=== PATIENT | male | born 1980 | race Hispanic/Latino ===

== ENCOUNTER 2020-07-08 16:07 | Emergency (ER) | payer BC ==
[2020-07-08] MEDS ORDERED: ACETAMINOPHEN 500 MG TAB ONE (16:44)
--- NOTE | 2020-07-08 17:30 | RAD REPORT ---
EXAM DESCRIPTION: RAD - Chest Single View - 07/08/2020 5:25 pm CLINICAL HISTORY: Cough;Fever Chest pain. COMPARISON: No comparisons FINDINGS: Portable technique limits examination quality. Moderate bilateral pulmonary opacities are present likely related to viral infection or pneumonia. Th e heart is normal in size. No displaced fractures.
[2020-07-08 19:40] LABS: SARS-COV-2 RT PCR POSITIVE (NEGATIVE)
--- NOTE | 2020-07-08 19:48 | ER ---
Nurse's Notes [facility] Name: Gurdeep Null Age: 39 yrs Sex: Male : 1980 Arrival Date: 07/08/2020 Time: 16:08 Bed 26 Private MD: Diagnosis: Coronavirus infection, unspecified Presentation: 07/08 16:17 Chief complaint: Patient states: fever, off and on, x days. No appetite, diarrhea, ca1 cough and congestion. Took Tylenol at 1200. Coronavirus screen: Client denies travel out of the [place] in the last 14 days. At this time, the client does not indicate any symptoms associated with coronavirus-19. Ebola Screen: Patient negative for fever greater than or equal to 101.5 degrees Fahrenheit, and additional compatible Ebola Virus Disease symptoms Patient denies exposure to infectious person. Patient denies travel to an Ebola-affected area in the 21 days before illness onset. No symptoms or risks identified at this time. Initial Sepsis Screen: Does the patient meet any 2 criteria? No. Patient's initial sepsis screen is negative. Does the patient have a suspected source of infection? No. Patient's initial sepsis screen is negative. Risk Assessment: Do you want to hurt yourself or someone else? Patient reports no desire to harm self or others. Onset of symptoms was July 08, 2020. 16:17 Method Of Arrival: Ambulatory ca1 16:17 Acuity: [id number] 3 ca1 Historical: - Allergies: 16:19 No Known Allergies; ca1 - Home Meds: 16:19 None [Active]; ca1 - PMHx: 16:19 None; ca1 - PSHx: 16:19 None; ca1 - Immunization history:: Flu vaccine is not up to date. - Social history:: Smoking status: Patient reports use of chewing tobacco. Screenin:35 Abuse screen: Denies threats or abuse. Denies injuries from another. Nutritional iw screening: No deficits noted. Tuberculosis screening: No symptoms or risk factors identified. Fall Risk None identified. Assessment: 16:34 General: Appears in no apparent distress. Behavior is calm, cooperative. General: iw Reports fever for feeling ill for. Pain: Complains of pain in body aches all over. Neuro: Level of Consciousness is awake, alert, obeys commands, Oriented to person, place, time, situation, Moves all extremities. Cardiovascular: Capillary refill < 3 seconds in bilateral fingers Patient's skin is warm and dry. Respiratory: Respiratory effort is even, unlabored. Derm: Skin is intact, is healthy with good turgor. Musculoskeletal: Range of motion: intact in all extremities. 17:27 Reassessment: Patient appears in no apparent distress at this time. Patient and/or iw family updated on plan of care and expected duration. Pain level reassessed. Patient is alert, oriented x 3, equal unlabored respirations, skin warm/dry/pink. 20:00 Reassessment: Patient and/or family updated on plan of care and expected duration. Pain fu level reassessed. Patient is alert, oriented x 3, equal unlabored respirations, skin warm/dry/pink. Vital Signs: 16:17 BP 141 / 87; Pulse 118; Resp 16 S; Temp 101.5(O); Pulse Ox 97% on R/A; Weight 108.86 kg ca1 (R); Height 5 ft. 11 in. (180.34 cm) (R); Pain 4/10; 17:27 BP 133 / 78; Pulse 102; Resp 18 S; Temp 100.6(O); Pulse Ox 98% on R/A; iw 16:17 Body Mass Index 33.47 (108.86 kg, 180.34 cm) ca1 ED Course: 16:08 Patient arrived in ED. as 16:19 Triage completed. ca1 16:19 Arm band placed on right wrist. ca1 16:20 [facility] Tolliver [facility]C [facility]. kb 16:20 Dominick Arango MD is Attending Physician. kb 16:34 Jeannie Lorenz, DINO is Primary Nurse. iw 16:38 Flu Sent. ca1 16:38 COVID-19 : Document "Date of Symptom Onset" if Symptomatic. Sent. ca1 17:25 Chest Single View XRAY In Process Unspecified. EDMS 19:30 Patient has correct armband on for positive identification. Bed in low position. Call fu light in reach. Side rails up X 1. comb machine operator on. Pulse ox on. 20:20 No provider procedures requiring assistance completed. fu 20:20 Patient did not have IV access during this emergency room visit. fu Administered Medications: 16:27 Drug: Tylenol 1000 mg Route: PO; ca1 19:00 Follow up: Response: No adverse reaction fu 20:19 Drug: Ibuprofen 800 mg Route: PO; ca1 21:09 Follow up: Response: No adverse reaction fu Outcome: 19:48 Discharge ordered by . danie 20:20 Discharged to home ambulatory. fu 20:20 Condition: stable 20:20 Discharge instructions given to patient, Instructed on discharge instructions, follow up and referral plans. Demonstrated understanding of instructions, follow-up care. 20:28 Patient left the ED. fu Signatures: Dispatcher [employer] EDAnne Adams, AUTOMATIC SPLICING MACHINE OPERATOR-C AUTOMATIC SPLICING MACHINE OPERATOR-Maral Venegas Irene, RN DINO Patel Munguia RN RN fu Sheeba Zelaya RN RN ca1
--- NOTE | 2020-07-08 19:48 | EDPHYS ---
Physician Documentation [facility] Name: Gurdeep Null Age: 39 yrs Sex: Male : 1980 Arrival Date: 07/08/2020 Time: 16:08 Bed 26 Private MD: ED Physician Dominick Arango HPI: 07/08 18:52 This 39 yrs old Male presents to ER via Ambulatory with complaints of fatigue, kb Decreased Appetite. 18:52 The patient or guardian reports cough, described as mild, with no sputum, dry, flu kb symptoms, no appetite, fever (max 103), fatigue. Onset: The symptoms/episode began/occurred 6 day(s) ago. Severity of symptoms: At their worst the symptoms were moderate, in the emergency department the symptoms are unchanged. Modifying factors: The symptoms are alleviated by nothing, the symptoms are aggravated by nothing. Associated signs and symptoms: Pertinent positives: fever. The patient has not experienced similar symptoms in the past. The patient has not recently seen a physician. Pt reports fatigue for 6 days. States he has been working a lot and thinks he is just run down. Reports slight dry cough, no appetite, and fever. States temp was 103 a few days ago. Historical: - Allergies: 16:19 No Known Allergies; ca1 - Home Meds: 16:19 None [Active]; ca1 - PMHx: 16:19 None; ca1 - PSHx: 16:19 None; ca1 - Immunization history:: Flu vaccine is not up to date. - Social history:: Smoking status: Patient reports use of chewing tobacco. ROS: 18:48 Cardiovascular: Negative for chest pain, palpitations, and edema, Abdomen/GI: Negative kb for abdominal pain, nausea, vomiting, diarrhea, and constipation, MS/Extremity: Negative for injury and deformity, Skin: Negative for injury, rash, and discoloration, Neuro: Negative for headache, weakness, numbness, tingling, and seizure. 18:48 Constitutional: Positive for fatigue, fever, decreased appetite. 18:48 Respiratory: Positive for cough, with no reported sputum, Negative for dyspnea on exertion, hemoptysis, orthopnea, pleurisy, shortness of breath, sputum production, wheezing. Exam: 18:50 Constitutional: This is a well developed, well nourished patient who is awake, alert, kb and in no acute distress. Head/Face: Normocephalic, atraumatic. Respiratory: Respirations even and unlabored. No increased work of breathing, no retractions or nasal flaring. Abdomen/GI: Soft, non-tender. No distention Skin: Warm, dry with normal turgor. Normal color. MS/ Extremity: Pulses equal, no cyanosis. Neurovascular intact. Full, normal range of motion. Neuro: Awake and alert, GCS 15, oriented to person, place, time, and situation. Moves all extremities. Normal gait. Vital Signs: 16:17 BP 141 / 87; Pulse 118; Resp 16 S; Temp 101.5(O); Pulse Ox 97% on R/A; Weight 108.86 kg ca1 (R); Height 5 ft. 11 in. (180.34 cm) (R); Pain 4/10; 17:27 BP 133 / 78; Pulse 102; Resp 18 S; Temp 100.6(O); Pulse Ox 98% on R/A; iw 16:17 Body Mass Index 33.47 (108.86 kg, 180.34 cm) ca1 MDM: 16:35 Patient medically screened. kb 18:48 Data reviewed: vital signs, nurses notes. Data interpreted: Pulse oximetry: on room air kb is 98 %. Interpretation: normal. 19:47 Counseling: I had a detailed discussion with the patient and/or guardian regarding: the kb historical points, exam findings, and any diagnostic results supporting the discharge/admit diagnosis, lab results, radiology results, the need for outpatient follow up, a family practitioner, to return to the emergency department if symptoms worsen or persist or if there are any questions or concerns that arise at home. 07/08 16:21 Order name: Flu kb 07/08 16:21 Order name: COVID-19 : Document "Date of Symptom Onset" if Symptomatic. kb 07/08 16:51 Order name: Chest Single View XRAY; Complete Time: 18:05 kb 07/08 19:40 Order name: COVID-19/FLU A+B; Complete Time: 19:47 EDMS Administered Medications: 16:27 Drug: Tylenol 1000 mg Route: PO; ca1 19:00 Follow up: Response: No adverse reaction fu 20:19 Drug: Ibuprofen 800 mg Route: PO; ca1 21:09 Follow up: Response: No adverse reaction fu Disposition: 03/21 01:20 Co-signature as Attending Physician, Dominick Arango MD I agree with the assessment and [facility] plan of care. Disposition: 07/08/20 19:48 Discharged to Home. Impression: Coronavirus infection, unspecified. - Condition is Stable. - Discharge Instructions: Viral Respiratory Infection, [id number], COVID-19. - Medication Reconciliation Form, Thank You Letter, Antibiotic Education, Prescription Opioid Use form. - Follow up: Emergency Department; When: As needed; Reason: Worsening of condition. Follow up: Private Physician; When: 2 - 3 days; Reason: Recheck today's complaints, Continuance of care, Re-evaluation by your physician. Signatures: Dispatcher [employer] EDAnne Adams, TAISHA-Jad SUMNER-Dominick Gonzales MD MD cha Umadhay, Patel, RN RN noah Zelaya, Sheeba RN DINO ca1 Corrections: (The following items were deleted from the chart) 07/08 18:31 16:21 Influenza Screen (A ordered. EDIN EDMS 18:31 16:21 CORONAVIRUS ordered. EDIN EDMS 18:31 16:22 Influenza Screen (A \\T\\ B)+BA.LAB.BRZ ordered. EDIN EDMS 18:31 16:22 CORONAVIRUS+MR.LAB.BRZ ordered. [facility] EDMS 18:55 18:52 Pt reports fatigue for 6 days. States he has been working a lot and thinks he is kb just run down. Reports slight dry cough and fever. States temp was 103 a few days ago. kb 20:28 19:48 07/08/2020 19:48 Discharged to Home. Impression: Coronavirus infection, fu unspecified. Condition is Stable. Forms are Medication Reconciliation Form, Thank You Letter, Antibiotic Education, Prescription Opioid Use. Follow up: Emergency Department; When: As needed; Reason: Worsening of condition. Follow up: Private Physician; When: 2 - 3 days; Reason: Recheck today's complaints, Continuance of care, Re-evaluation by your physician. kb
[2020-07-08] MEDS ORDERED: IBUPROFEN 400 MG TAB ONE (20:33)
[2020-07-08 20:35] VITALS: BP 133/78; TEMP 100.6; O2SAT 98
== END 2020-07-08 20:28 | disposition home or self-care (01) ==
LOC: ER 16:07
DX: U07.1 COVID-19 (principal); F17.220 Nicotine dependence, chewing tobacco, uncomplicated
CPT/HCPCS: 0240U; 71045; 99284

== ENCOUNTER 2020-07-12 12:52 | Inpatient (IN) | payer BC ==
[2020-07-12 15:59] LABS: Absolute Lymphocytes (CBC) 1.5 K/uL (0.7-4.9); Basophils % 0.6 % (0-1.3); Hematocrit 42.8 % (39.6-49.0); RBC Red Blood Cell Count 5.06 M/uL (4.33-5.43)
[2020-07-12 16:01] LABS: Protime INR 1.16
--- NOTE | 2020-07-12 16:07 | RAD REPORT ---
EXAM DESCRIPTION: RAD - Chest Single View - 07/12/2020 3:18 pm CLINICAL HISTORY: DYSPNEA, COVID positive COMPARISON: Portable July 08 TECHNIQUE: AP portable chest image was obtained 07/12/2020 3:18 pm . FINDINGS: Bilateral airspace opacification present in the mid and lower lung castaneda. Each apex is ge nerally spared. This moderate severity bilateral pneumonia pattern is not substantially different fro m comparison. Heart and vasculature are normal. No measurable pleural effusion and no pneumothorax. N o acute bony abnormality seen. No acute aortic findings suspected. IMPRESSION: Moderate severity bilateral COVID-19 pneumonia pattern. Findings are not substantially different from July 08.
[2020-07-12 16:34] LABS: ALT/SGPT 112 U/L (12-78); AST/SGOT 79 U/L (15-37); Albumin 2.9 g/dL (3.4-5.0); Alkaline Phosphatase 101 U/L (45-117); BUN Blood Urea Nitrogen 6 mg/dL (7-18); Bicarbonate 27 mmol/L (21-32); Bilirubin Direct 0.2 mg/dL (0-0.2); Bilirubin Total 0.6 mg/dL (0.2-1.0); Ferritin 944.8 ng/mL (26-388); Glucose Level 104 mg/dL (74-106); Lipase 162 U/L (73-393); Potassium 4.1 mmol/L (3.5-5.1); Protein, Total 8.3 g/dL (6.4-8.2); Sodium Level 133 mmol/L (136-145); Troponin (Emerg Dept Use Only) < 0.02 ng/mL (0.0-0.045)
--- NOTE | 2020-07-12 17:01 | RAD REPORT ---
EXAM DESCRIPTION: CT - Chest For Pe Angio - 07/12/2020 4:47 pm CLINICAL HISTORY: DYSPNEA, COVID positive COMPARISON: Chest Single View dated 07/12/2020 TECHNIQUE: Dynamically enhanced 2 mm thick images of the chest were obtained during administration o f approximately 150mL Isovue 370 IV contrast. Coronal and oblique MIP reconstruction images were gene rated and reviewed. Exam utilizes a protocol to evaluate the pulmonary arterial tree. All CT scans are performed using dose optimization technique as appropriate and may include automated exposure control or mA/KV adjustment according to patient size. FINDINGS: No pulmonary emboli are identified. The aorta as imaged shows no acute or suspicious finding. No pericardial thickening or effusion. Prominent, predominantly peripheral, ground-glass and airspace opacities are present. A few air bronc hograms are present. No cavitation or mass lesion. Pattern is well described in COVID-19 pneumonia is the single most likely etiology given the provided history. No pleural effusion or pleural thickenin g. No mediastinal or hilar suspicious masses. No chest wall masses or abnormal axillary lymphadenopathy. Limited imaging of the uppermost abdomen shows diffuse fatty infiltration of the liver. IMPRESSION: No pulmonary emboli identified. Moderate severity bilateral COVID-19 pneumonia.
--- NOTE | 2020-07-12 17:11 | EDPHYS ---
Physician Documentation [facility] Name: Gurdeep Null Age: 39 yrs Sex: Male : 1980 Arrival Date: 07/12/2020 Time: 12:55 Bed 27 Private MD: ED Physician Donnie Miller HPI: 07/12 15:38 This 39 yrs old Male presents to ER via Ambulatory with complaints of trouble kb sleeping- covid+. 15:42 The patient has shortness of breath at rest. kb 16:01 Onset: The symptoms/episode began/occurred 4 day(s) ago. Duration: The symptoms are kb intermittent. The patient's shortness of breath is aggravated by exertion, light activity. Associated signs and symptoms: Pertinent positives: non-productive cough. Severity of symptoms: At their worst the symptoms were moderate in the emergency department the symptoms are unchanged. The patient has not experienced similar symptoms in the past. The patient has not recently seen a physician. Pt reports shortness of breath at night that keeps him from sleeping. Reports he is able to go to sleep, but then wakes up moments later gasping for a breath. States this started 4 days ago when he was diagnosed with COVID. Has been monitoring his oxygen at home and it has been running 87-91%. Historical: - Allergies: 13:29 No Known Allergies; ca1 - Home Meds: 13:29 None [Active]; ca1 - PMHx: 13:29 None; ca1 - PSHx: 13:29 None; ca1 - Immunization history:: Flu vaccine is not up to date. - Social history:: Smoking status: Patient/guardian denies using tobacco, the patient reports quitting approximately 6 years ago. ROS: 15:37 Cardiovascular: Negative for chest pain, palpitations, and edema, Abdomen/GI: Negative kb for abdominal pain, nausea, vomiting, diarrhea, and constipation, MS/Extremity: Negative for injury and deformity, Skin: Negative for injury, rash, and discoloration, Neuro: Negative for headache, weakness, numbness, tingling, and seizure. 15:37 Constitutional: Positive for malaise, poor PO intake. 15:37 Respiratory: Positive for cough, shortness of breath. 15:37 Psych: Positive for insomnia. Exam: 15:37 Constitutional: This is a well developed, well nourished patient who is awake, alert, kb and in no acute distress. Head/Face: Normocephalic, atraumatic. Respiratory: Respirations even and unlabored. No increased work of breathing, no retractions or nasal flaring. Skin: Warm, dry with normal turgor. Normal color. MS/ Extremity: Pulses equal, no cyanosis. Neurovascular intact. Full, normal range of motion. Neuro: Awake and alert, GCS 15, oriented to person, place, time, and situation. Moves all extremities. Normal gait. 15:37 ECG was reviewed by the Attending Physician. Vital Signs: 13:25 BP 130 / 72; Pulse 113; Resp 18 S; Temp 97.6(TE); Pulse Ox 91% on R/A; Weight 104.33 kg ca1 (R); Height 5 ft. 11 in. (180.34 cm) (M); Pain 0/10; 15:00 BP 119 / 85; Pulse 106; Resp 20 S; Pulse Ox 89% on R/A; aa5 15:02 Pulse Ox 96% on 2 lpm NC; aa5 15:30 BP 130 / 78; Pulse 109; Resp 18 S; Pulse Ox 97% on 2 lpm NC; aa5 16:20 BP 114 / 67; Pulse 108; Resp 18 S; Pulse Ox 95% on 2 lpm NC; aa5 13:25 Body Mass Index 32.08 (104.33 kg, 180.34 cm) ca1 MDM: 14:32 Patient medically screened. kb 15:38 Data reviewed: vital signs, nurses notes. Data interpreted: Pulse oximetry: on room air kb is 89 %. Interpretation: hypoxia. Plan: O2 by NC applied. 16:52 Counseling: I had a detailed discussion with the patient and/or guardian regarding: the kb historical points, exam findings, and any diagnostic results supporting the discharge/admit diagnosis, lab results, radiology results, the need for further work-up and treatment in the hospital. Physician consultation: Praful Stearns MD was contacted at 16:52, regarding admission, to the telemetry unit. patient's condition, and will see patient in ED. 07/12 14:34 Order name: Blood Culture Adult (2) kb 07/12 14:34 Order name: BMP kb 07/12 14:34 Order name: C-Reactive Protein; Complete Time: 16:35 kb 07/12 14:34 Order name: CBC with Diff; Complete Time: 16:16 kb 07/12 14:34 Order name: D-Dimer; Complete Time: 16:13 kb 07/12 14:34 Order name: Ferritin; Complete Time: 16:35 kb 07/12 14:34 Order name: Lactate; Complete Time: 16:07 kb 07/12 14:34 Order name: LFT's; Complete Time: 16:35 kb 07/12 14:34 Order name: Lipase; Complete Time: 16:35 kb 07/12 14:34 Order name: Procalcitonin; Complete Time: 17:08 kb 07/12 14:34 Order name: PT-INR; Complete Time: 16:13 kb 07/12 14:34 Order name: Ptt, Activated; Complete Time: 16:13 kb 07/12 14:34 Order name: Troponin (emerg Dept Use Only); Complete Time: 16:35 kb 07/12 14:36 Order name: Blood Culture EDNJ 07/12 14:34 Order name: CXR XRAY; Complete Time: 16:09 kb 07/12 14:34 Order name: EKG; Complete Time: 14:37 kb 07/12 14:34 Order name: Cardiac monitoring; Complete Time: 15:42 kb 07/12 14:34 Order name: Droplet/Contact Precautions; Complete Time: 15:42 kb 07/12 14:34 Order name: EKG - Nurse/Tech; Complete Time: 15:42 kb 07/12 14:34 Order name: IV Start; Complete Time: 15:42 kb 07/12 14:34 Order name: Labs collected and sent; Complete Time: 15:42 kb 07/12 14:34 Order name: O2 Per Protocol; Complete Time: 15:42 kb 07/12 14:34 Order name: O2 Sat Monitoring; Complete Time: 15:42 kb 07/12 14:36 Order name: Basic Metabolic Panel; Complete Time: 16:35 EDMS 07/12 16:13 Order name: CT Chest For PE Angio; Complete Time: 17:04 kb 07/12 17:18 Order name: Regular EDNJ 07/12 17:18 Order name: Basic Metabolic Panel EDNJ 07/12 17:18 Order name: Basic Metabolic Panel [facility] 07/12 17:19 Order name: Patient Safety Orders [facility] 07/12 17:19 Order name: Urinalysis EDMS EC:37 Rate is 105 beats/min. Rhythm is regular. QRS [place] is Normal. IN interval is normal at kb 118 msec. QRS interval is normal at 84 msec. QT interval is normal at 322 msec. Administered Medications: No medications were administered Disposition: 07/13 08:11 Co-signature as Attending Physician, Donnie Miller MD I agree with the assessment and kdr plan of care. Disposition: 07/12/20 17:11 Hospitalization ordered by Praful Stearns for Observation. Preliminary diagnosis are Pneumonia, unspecified organism, Coronavirus infection, unspecified, Hypoxia. - Bed requested for Telemetry/MedSurg (observation). - Status is Observation. ea - Condition is Stable. - Problem is new. - Symptoms are unchanged. Signatures: Dispatcher [employer] EDNJ Anne Tolliver, ECONOMICS TEACHER-C ECONOMICS TEACHER-Ckb Lisseth Adams Kevin, MD MD kdr Antunez, Elena RN RN Sheeba Piper RN RN ca1 Corrections: (The following items were deleted from the chart) 07/12 17:47 17:11 Hospitalization Ordered by Praful Stearns MD for Observation. Preliminary bd diagnosis is Pneumonia, unspecified organism; Coronavirus infection, unspecified; Hypoxia. Bed requested for Telemetry/MedSurg (observation). Status is Observation. Condition is Stable. Problem is new. Symptoms are unchanged. kb 19:40 17:47 07/12/2020 17:11 Hospitalization Ordered by Praful Stearns MD for Observation. ea Preliminary diagnosis is Pneumonia, unspecified organism; Coronavirus infection, unspecified; Hypoxia. Bed requested for Telemetry/MedSurg (observation). Status is Observation. Condition is Stable. Problem is new. Symptoms are unchanged. bd
--- NOTE | 2020-07-12 17:11 | ER ---
Nurse's Notes [facility] Name: Gurdeep Null Age: 39 yrs Sex: Male : 1980 Arrival Date: 07/12/2020 Time: 12:55 Bed 27 Private MD: Diagnosis: Pneumonia, unspecified organism;Coronavirus infection, unspecified;Hypoxia Presentation: 07/12 13:25 Chief complaint: Patient states: Covid+, 07/08/2020. I can't sleep since, it's like an ca1 apnea episode every time then I wake up wheezy. My O2 sat is at 89-93%. I just can't sleep straight for at least 4 - 5 hrs. Coronavirus screen: Client reports previous positive COVID test result. Date of collection: July 08, 2020 Staff notified of need for isolation. Ebola Screen: Patient negative for fever greater than or equal to 101.5 degrees Fahrenheit, and additional compatible Ebola Virus Disease symptoms Patient denies exposure to infectious person. Patient denies travel to an Ebola-affected area in the 21 days before illness onset. No symptoms or risks identified at this time. Initial Sepsis Screen: Does the patient meet any 2 criteria? No. Patient's initial sepsis screen is negative. Does the patient have a suspected source of infection? No. Patient's initial sepsis screen is negative. Risk Assessment: Do you want to hurt yourself or someone else? Patient reports no desire to harm self or others. Onset of symptoms was July 12, 2020. 13:25 Method Of Arrival: Ambulatory ca1 13:25 Acuity: YAAKOV 4 ca1 14:51 Acuity: YAAKOV 3 aa5 Historical: - Allergies: 13:29 No Known Allergies; ca1 - Home Meds: 13:29 None [Active]; ca1 - PMHx: 13:29 None; ca1 - PSHx: 13:29 None; ca1 - Immunization history:: Flu vaccine is not up to date. - Social history:: Smoking status: Patient/guardian denies using tobacco, the patient reports quitting approximately 6 years ago. Screenin:45 Abuse screen: Denies threats or abuse. Nutritional screening: No deficits noted. aa5 Tuberculosis screening: No symptoms or risk factors identified. Fall Risk None identified. Assessment: 14:50 General: Appears comfortable, Behavior is calm, cooperative. Pain: Denies pain. Neuro: aa5 Level of Consciousness is awake, alert, obeys commands, Oriented to person, place, time, situation. Cardiovascular: Heart tones S1 S2 present Rhythm is regular. Respiratory: Reports shortness of breath at rest on exertion cough that is wet Airway is patent Respiratory effort is even, unlabored, Respiratory pattern is regular, symmetrical, Breath sounds are clear bilaterally. GI: Abdomen is round non-distended, Bowel sounds present X 4 quads. Abd is soft and non tender X 4 quads. : No signs and/or symptoms were reported regarding the genitourinary system. EENT: No signs and/or symptoms were reported regarding the EENT system. Derm: Skin is pink, warm \T\ dry. Musculoskeletal: Range of motion: intact in all extremities. 15:30 Reassessment: Patient is alert, oriented x 3, equal unlabored respirations, skin aa5 warm/dry/pink. Pt notified of wait time for x-ray and lab results. . 16:38 Reassessment: Pt to CT via stretcher . aa5 16:38 Reassessment: Patient is alert, oriented x 3, equal unlabored respirations, skin aa5 warm/dry/pink. 17:30 Reassessment: Patient is alert, oriented x 3, equal unlabored respirations, skin aa5 warm/dry/pink. 18:44 Reassessment: Unsuccessful attempt to call report to admitting nurse, nurse to call aa5 back for report. . 19:25 Reassessment: report given to Lindsay SUN for room 406. bb Vital Signs: 13:25 BP 130 / 72; Pulse 113; Resp 18 S; Temp 97.6(TE); Pulse Ox 91% on R/A; Weight 104.33 kg ca1 (R); Height 5 ft. 11 in. (180.34 cm) (M); Pain 0/10; 15:00 BP 119 / 85; Pulse 106; Resp 20 S; Pulse Ox 89% on R/A; aa5 15:02 Pulse Ox 96% on 2 lpm NC; aa5 15:30 BP 130 / 78; Pulse 109; Resp 18 S; Pulse Ox 97% on 2 lpm NC; aa5 16:20 BP 114 / 67; Pulse 108; Resp 18 S; Pulse Ox 95% on 2 lpm NC; aa5 13:25 Body Mass Index 32.08 (104.33 kg, 180.34 cm) ca1 ED Course: 12:55 Patient arrived in ED. as 13:29 Triage completed. ca1 13:29 Arm band placed on right wrist. ca1 14:32 Anne Tolliver F[facility]-C [facility]. kb 14:32 Donnie Miller MD is Attending Physician. kb 14:50 Patient has correct armband on for positive identification. Bed in low position. Call aa5 light in reach. Side rails up X2. lunchroom monitor on. Pulse ox on. NIBP on. 14:51 Falguni Landers, RN is Primary Nurse. aa5 15:18 CXR XRAY In Process Unspecified. EDMS 15:25 Inserted saline lock: 20 gauge in right antecubital area, using aseptic technique. aa5 Blood collected. 15:25 Initial lab(s) drawn, by me, sent to lab. First set of blood cultures drawn by me. aa5 15:35 Second set of blood cultures drawn by me. aa5 16:47 CT Chest For PE Angio In Process Unspecified. EDMS 17:11 Praful Stearns MD is Hospitalizing Provider. kb 19:05 Report given to Kari Amaya, DINO. aa5 19:26 No provider procedures requiring assistance completed. Patient admitted, IV remains in bb place. Administered Medications: No medications were administered Outcome: 17:11 Decision to Hospitalize by Provider. kb 19:26 Admitted to Med/surg accompanied by tech, room 406, with chart, Report called to Lindsay montelongo RN 19:26 Condition: stable 19:26 Instructed on the need for admit. 19:40 Patient left the ED. ea Signatures: Dispatcher [employer] EDMS Anne Tolliver FNP-C FNP-Maral Venegas Brenda, RN RN bb Falguni Landers, RN RN aaFiona Montenegro, Sheeba Escalona RN, ea, RN RN ca1
[2020-07-12] MEDS ORDERED: IPRATROPIUM BROM 0.5MG/2.5ML NEB PRN (17:14)
[2020-07-12] MEDS ORDERED: ALBUTEROL 2.5 MG/3 ML NEB SOL NEB PRN (17:14)
[2020-07-12] MEDS ORDERED: ONDANSETRON 4 MG/2 ML VIAL IV PRN (17:14)
--- NOTE | 2020-07-12 17:21 | P.HP ---
Certification for Inpatient With expected LOS: >2 Midnights Patient will require the following post-hospital care: None Practitioner: I am a practitioner with admitting privileges, knowledge of patient current condition, hospital course, and medical plan of care. Services: Services provided to patient in accordance with Admission requirements found in Title 42 Section 412.3 of the Code of Federal Regulations Patient History Date of Service: 07/12/20 Reason for admission: covid 19 disease History of Present Illness: 39 y o male pt with hx of fever and sob for the past few days. he also has cough and he was diagnosed with covid 19 disease on 07/08/20. he continued to have lethargy and sob so he decided to come to the ED. He had CXR and CTA pulm for r/o of PE and this was negative for PE. He did have changes compatible with covid pneumonia so he was asked to be admitted for inpt care. he also had hypoxia with oxygen of 85% which improved with supplemental oxygen. Home medications list reviewed: Yes Review of Systems General: Fever, Weakness Eyes: Unremarkable Respiratory: Cough, Shortness of Breath Cardiovascular: Unremarkable Gastrointestinal: Unremarkable Genitourinary: Unremarkable Integumentary: Unremarkable Neurological: Unremarkable Physical Examination - Physical Exam General: Alert, Oriented x3, Mild distress HEENT: Atraumatic, Normocephalic Neck: Supple Respiratory: Diminished Cardiovascular: Normal pulses, Regular rate/rhythm, Normal S1 S2 Gastrointestinal: Soft and benign Neurological: Normal speech, Normal strength at 5/5 x4 extr, Cranial nerves 3-12 intact, Normal affect - Studies Laboratory Data (last 24 hrs) 07/12/20 15:25: PT 13.4 H, INR 1.16, APTT 30.1 07/12/20 15:25: WBC 11.70 H, Hgb 14.5, Hct 42.8, Plt Count 385 07/12/20 15:25: Sodium 133 L, Potassium 4.1, BUN 6 L, Creatinine 0.70, Glucose 104, Total Bilirubin 0.6, AST 79 H, ALT 112 H, Alkaline Phosphatase 101, Lipase 162 Assessment and Plan - Plan 1.COVID 19 disease-he was diagnosed a while back. No CT evidence of PE. supplemental oxygen started. we will start Vit C, Zinc and tylenol., we will also start ceftriaxone and azithromycin for empiric antibiotic coverage. 2.Resp failure with hypoxia-Due to covid 19 diease. we will continue breathing treatments and supplemental oxygen. we will wean off as tolerated. Discharge Plan: Home - Advance Directives Does patient have a Living Will: No Does patient have a Durable POA for Healthcare: No - Code Status/Comfort Care Code Status: Full Code
[2020-07-12] MEDS ORDERED: ACETAMINOPHEN 325 MG TABLET PO PRN (17:32)
[2020-07-12] MEDS ORDERED: MELATONIN 5 MG TABLET PO PRN (20:26)
[2020-07-12 20:41] LABS: Urine Appearance CLEAR; Urine Bilirubin NEGATIVE (NEG); Urine Blood 1+ (NEG); Urine Color YELLOW; Urine Glucose NEGATIVE (NEG); Urine Protein TRACE (NEG); Urine Specific Gravity >=1.030 (1.005-1.030); Urine pH 7.5 (5.0-7.0)
[2020-07-12 20:42] LABS: Urine Microscopic Reflex ORDER UMIC
[2020-07-12] MEDS: CEFTRIAXONE/SWI 1gm 1 GM/10 ML SYR IVP SCH (20:45)
[2020-07-12] MEDS: ENOXAPARIN 40 MG/0.4 ML SQ SCH (20:45)
[2020-07-12 21:21] LABS: Urine Bacteria <20 /HPF (NONE SEEN); Urine RBC <5 /HPF (NONE SEEN)
[2020-07-12 22:36] VITALS: BMI 33.1
[2020-07-12] MEDS ORDERED: ZOLPIDEM TARTRATE 10 MG TABLET PO ONE (22:42)
[2020-07-13 04:28] LABS: BUN Blood Urea Nitrogen 6 mg/dL (7-18); Bicarbonate 30 mmol/L (21-32); Glucose Level 114 mg/dL (74-106); Potassium 3.9 mmol/L (3.5-5.1); Sodium Level 134 mmol/L (136-145)
--- NOTE | 2020-07-13 07:20 | EKG ---
Test Date: 2020-07-12 Test Time: 15:27:17 Public Health Engineer: EMILE MEASUREMENT RESULTS: Intervals: Rate: 105 PA: 118 QRSD: 84 QT: 322 QTc: 425 [place]: P: 42 PA: 118 QRS: 93 T: 35 INTERPRETIVE STATEMENTS: Sinus tachycardia Rightward axis Borderline ECG Compared to ECG 02/28/2005 23:46:00 Right-axis deviation now present Sinus rhythm no longer present Sinus arrhythmia no longer present Electronically Signed On 07-13-20 07:18:10 CDT by Temo Abrams
[2020-07-13] MEDS: CEFTRIAXONE/SWI 1gm 1 GM/10 ML SYR IVP SCH (07:34)
[2020-07-13] MEDS: ENOXAPARIN 40 MG/0.4 ML SQ SCH (07:35)
[2020-07-13] MEDS: ASCORBIC ACID 500 MG TABLET PO SCH (07:35)
[2020-07-13] MEDS: ZINC SULFATE 220 MG CAP PO SCH (07:35)
[2020-07-13] MEDS: METHYLPREDNISOLONE 125 MG INJ IV SCH ×2 (10:03→20:15)
--- NOTE | 2020-07-13 15:00 | P.PN ---
Subjective Date of Service: 07/13/20 Chief Complaint: covid 19 disease Patient states he feels much better. He was seen leaving without oxygen. Physical Examination - Vital Signs Temperature: 97.0 F Blood Pressure: 114/68 Pulse: 101 Respirations: 16 Pulse Ox (%): 91 - Physical Exam General: Alert, In no apparent distress HEENT: Mucous membr. moist/pink Neck: JVD not distended Respiratory: Other (Nonlabored breathing) Cardiovascular: Regular rate/rhythm, Normal S1 S2 Gastrointestinal: Soft and benign, Non-distended Musculoskeletal: No swelling Integumentary: No rashes Neurological: Normal strength at 5/5 x4 extr - Studies Laboratory Data (last 24 hrs) 07/12/20 15:25: PT 13.4 H, INR 1.16, APTT 30.1 07/12/20 15:25: WBC 11.70 H, Hgb 14.5, Hct 42.8, Plt Count 385 07/12/20 15:25: Sodium 133 L, Potassium 4.1, BUN 6 L, Creatinine 0.70, Glucose 104, Total Bilirubin 0.6, AST 79 H, ALT 112 H, Alkaline Phosphatase 101, Lipase 162 Assessment And Plan - Current Problems (Diagnosis) (1) Pneumonia due to COVID-19 virus Current Visit: Yes Status: Acute (2) Acute respiratory failure with hypoxia Current Visit: Yes Status: Acute - Plan IV steroid, vitamins C, vitamin-D and zinc supplementation. Weaned off oxygen as tolerated. Patient reports snoring loudly in bed and interrupted sleep. He is concerned of obstructive sleep apnea. He is informed to follow with Dr. Coronado for further evaluation.
[2020-07-13] MEDS: ENSURE HIGH PROTEIN 237 ML CAN PO SCH (21:00)
[2020-07-14] MEDS: BENZONATATE 100 MG CAP PO PRN (04:46)
[2020-07-14] MEDS: CEFTRIAXONE/SWI 1gm 1 GM/10 ML SYR IVP SCH (07:30)
[2020-07-14] MEDS: METHYLPREDNISOLONE 125 MG INJ IV SCH ×2 (07:32→21:00)
[2020-07-14] MEDS: ASCORBIC ACID 500 MG TABLET PO SCH (07:33)
[2020-07-14] MEDS: ENOXAPARIN 40 MG/0.4 ML SQ SCH (07:33)
[2020-07-14] MEDS: ENSURE HIGH PROTEIN 237 ML CAN PO SCH ×2 (07:33→21:00)
[2020-07-14] MEDS: ZINC SULFATE 220 MG CAP PO SCH (07:33)
[2020-07-14 13:02] LABS: C.diff Antigen/Toxin Ag neg : Tox neg (NEG : NEG)
--- NOTE | 2020-07-14 14:33 | P.PN ---
Subjective Date of Service: 07/14/20 Chief Complaint: covid 19 disease No changes from yesterday. Patient is tolerating oxygen by nasal cannula at 2 L with borderline SaO2. Physical Examination - Vital Signs Temperature: 98.3 F Blood Pressure: 104/61 Pulse: 97 Respirations: 16 Pulse Ox (%): 90 - Physical Exam General: Alert, In no apparent distress HEENT: Mucous membr. moist/pink Neck: JVD not distended Respiratory: Other (No labored breathing.) Cardiovascular: No edema, Regular rate/rhythm Gastrointestinal: Soft and benign, Non-distended Musculoskeletal: No swelling Integumentary: No rashes Neurological: Normal strength at 5/5 x4 extr Assessment And Plan - Current Problems (Diagnosis) (1) Pneumonia due to COVID-19 virus Current Visit: Yes Status: Acute (2) Acute respiratory failure with hypoxia Current Visit: Yes Status: Acute - Plan Patient oxygen requirement is increasing gradually. Continue IV steroid, vitamins C, vitamin-D and zinc supplementation. Weaned off oxygen as tolerated. Pulmonary consult. Outpatient workup for sleep apnea.
[2020-07-15] MEDS: BENZONATATE 100 MG CAP PO PRN (01:05)
[2020-07-15] MEDS: ENSURE HIGH PROTEIN 237 ML CAN PO SCH (08:08)
[2020-07-15] MEDS: ENOXAPARIN 40 MG/0.4 ML SQ SCH (08:09)
[2020-07-15] MEDS: CEFTRIAXONE/SWI 1gm 1 GM/10 ML SYR IVP SCH (08:09)
[2020-07-15] MEDS: METHYLPREDNISOLONE 125 MG INJ IV SCH (08:09)
[2020-07-15] MEDS: ASCORBIC ACID 500 MG TABLET PO SCH (08:09)
[2020-07-15] MEDS: ZINC SULFATE 220 MG CAP PO SCH (08:09)
[2020-07-15 10:16] VITALS: O2SAT 93
--- NOTE | 2020-07-15 10:42 | P.CNS ---
Date of Consult: 07/15/20 Reason for Consult: Pneumonia due to faith virus Chief Complaint: covid 19 disease History of Present Illness: Patient is 39 years of age admitted with fever shortness of breath he was diagnosed with faith virus on July 08 pain progressively more short of breath admitted to the emergency room he is still short of breath although it is feeling better chest x-ray classic faith virus changes Allergies No Known Allergies Allergy (Verified 07/12/20 21:17) Home Medications: Ascorbic Acid [Vitamin C*] 2,000 mg PO BID #320 tablet 07/15/20 Benzonatate [Tessalon Perle*] 100 mg PO TID PRN #30 cap 07/15/20 Cholecalciferol (Vitamin D3) [Vitamin D3] 4,000 unit PO DAILY #60 capsule 07/15/20 Zinc Sulfate [Zinc Sulfate*] 220 mg PO DAILY #30 cap 07/15/20 predniSONE [Deltasone] 20 mg PO BID #21 tab 07/15/20 - Past Medical/Surgical History Diabetic: No - Social History Alcohol use: Yes CD- Drugs: No Caffeine use: Yes Place of Residence: Home Review of Systems General: Weakness Respiratory: Shortness of Breath Physical Examination Temp Pulse Resp BP Pulse Ox 98.1 F 78 20 118/65 97 07/15/20 08:00 07/15/20 08:00 07/15/20 08:00 07/15/20 08:00 07/15/20 08:00 - Problems (1) Pneumonia due to COVID-19 virus Current Visit: Yes Status: Acute Plan: Patient is 39 years of age admitted with pneumonia due to faith virus little short of breath at to be discharge on oxygen continue with prednisone aspirin at home labs vital signs all reviewed to follow up in my clinic in a week
--- NOTE | 2020-07-15 10:42 | P.DS ---
Admission Date: 07/12/20 Discharge Date: 07/15/20 Disposition: ROUTINE DISCHARGE Discharge Condition: FAIR Reason for Admission: covid 19 disease - Problems (1) Pneumonia due to COVID-19 virus Current Visit: Yes Status: Acute (2) Acute respiratory failure with hypoxia Current Visit: Yes Status: Acute Brief History of Present Illness: 39-year-old gentleman presents to the emergency department with a complaint of shortness of breath, generalized weakness cough and fever of 3 days duration. Patient tested positive for COVID 19 on 07/08/2020. His chest x-ray and CT PE in the emergency department demonstrated bilateral infiltrate consistent with coughing pneumonia, No PE. Patient was hypoxic on room air and required oxygen by nasal cannula. He was admitted for further management. Hospital Course: Patient admitted to the medical floor and treated with IV steroids, vitamin supplementation, and zinc supplementation and bronchodilators. Patient was requiring 2-3 L of oxygen by nasal cannula. He was monitored over 48 hrs and noted to be stable on oxygen by nasal cannula. Patient is discharged to home with oxygen and also prescribed prednisone as well as vitamin supplementation to continue treatment for COVID pneumonia. He will follow with Dr. Coronado within 1 week. Vital Signs/Physical Exam: Temp Pulse Resp BP Pulse Ox 98.1 F 78 20 118/65 97 07/15/20 08:00 07/15/20 08:00 07/15/20 08:00 07/15/20 08:00 07/15/20 08:00 General: Alert, In no apparent distress, Oriented x3 Neck: Supple Respiratory: Other (Nonlabored breathing.) Cardiovascular: No edema, Regular rate/rhythm Gastrointestinal: Normal bowel sounds, Soft and benign, Non-distended Musculoskeletal: No swelling Integumentary: No rashes Neurological: Normal strength at 5/5 x4 extr Laboratory Data at Discharge: WBC 11.70 K/uL (4.3-10.9) H 07/12/20 15:25 Hgb 14.5 g/dL (13.6-17.9) 07/12/20 15:25 Hct 42.8 % (39.6-49.0) 07/12/20 15:25 Plt Count 385 K/uL (152-406) 07/12/20 15:25 PT 13.4 SECONDS (9.5-12.5) H 07/12/20 15:25 INR 1.16 07/12/20 15:25 APTT 30.1 SECONDS (24.3-36.9) 07/12/20 15:25 Sodium 134 mmol/L (136-145) L 07/13/20 03:14 Potassium 3.9 mmol/L (3.5-5.1) 07/13/20 03:14 BUN 6 mg/dL (7-18) L 07/13/20 03:14 Creatinine 0.70 mg/dL (0.55-1.3) 07/13/20 03:14 Glucose 114 mg/dL (74-106) H 07/13/20 03:14 Total Bilirubin 0.6 mg/dL (0.2-1.0) 07/12/20 15:25 AST 79 U/L (15-37) H 07/12/20 15:25 ALT 112 U/L (12-78) H 07/12/20 15:25 Alkaline Phosphatase 101 U/L (45-117) 07/12/20 15:25 Lipase 162 U/L (73-393) 07/12/20 15:25 Home Medications: Ascorbic Acid [Vitamin C*] 2,000 mg PO BID #320 tablet 07/15/20 Benzonatate [Tessalon Perle*] 100 mg PO TID PRN #30 cap 07/15/20 Cholecalciferol (Vitamin D3) [Vitamin D3] 4,000 unit PO DAILY #60 capsule 07/15/20 Zinc Sulfate [Zinc Sulfate*] 220 mg PO DAILY #30 cap 07/15/20 predniSONE [Deltasone] 20 mg PO BID #21 tab 07/15/20 New Medications: predniSONE [Deltasone] 20 mg PO BID #21 tab Benzonatate [Tessalon Perle*] 100 mg PO TID PRN #30 cap PRN Reason: Cough Ascorbic Acid [Vitamin C*] 2,000 mg PO BID #320 tablet Cholecalciferol (Vitamin D3) [Vitamin D3] 4,000 unit PO DAILY #60 capsule Zinc Sulfate [Zinc Sulfate*] 220 mg PO DAILY #30 cap Diet: Regular Activity: Ad srinivas Followup: NONE,NONE [Primary Care Provider] - Clint Coronado MD [ACTIVE - CAN ADMIT] - 1 Week Time spent managing pt's care (in minutes): 28
[2020-07-15 12:23] VITALS: BP 111/61; TEMP 98.7
== END 2020-07-15 11:45 | disposition home or self-care (01) | DRG 177 ==
LOC: ER 12:52 → ERHOLD 17:16 → 4TH 19:30
PROVIDERS: ADMIT Internal Medicine Nephrology; ATTEND Internal Medicine
DX: U07.1 COVID-19 (principal); J12.82 Pneumonia due to coronavirus disease 2019; J96.01 Acute respiratory failure with hypoxia; Z79.52 Long term (current) use of systemic steroids; Z79.899 Other long term (current) drug therapy
CPT/HCPCS: 36415; 71045; 71275; 80048; 80076; 81003; 81015; 82728; 83605; 83690; 84145; 84484; 85025; 85379; 85610; 85730; 86140; 87040; 87324; 87449; 93005; 99285; J0696; J1650; J2930; Q9967

== ENCOUNTER 2022-02-18 13:47 | Emergency (ER) | payer BC ==
[2022-02-18] MEDS ORDERED: dexAMETHasone 10 MG/ML VIAL ONE (14:08)
--- NOTE | 2022-02-18 14:08 | EDPHYS ---
Physician Documentation [facility] Name: Gurdeep Null Age: 41 yrs Sex: Male : 1980 Arrival Date: 02/18/2022 Time: 13:49 Bed 12 Private MD: Dinesh Timmons V ED Physician Donnie Miller HPI: 02/18 14:02 This 41 yrs old Male presents to ER via Ambulatory with complaints of Ear kb Pain, Nasal Drainage. 14:02 The patient presents with a fullness. The complaints affect the left ear. Onset: The kb symptoms/episode began/occurred 4 day(s) ago. Modifying factors: The symptoms are alleviated by nothing, the symptoms are aggravated by nothing. Associated signs and symptoms: The patient has no apparent associated signs or symptoms. Severity of symptoms: At their worst the symptoms were moderate in the emergency department the symptoms are unchanged. The patient has not experienced similar symptoms in the past. The patient has not recently seen a physician. Pt reports fullness to left ear and sinus drainage. states the sinus congestion and drainage started 7 weeks ago, took a course of augmentin and now just has some residual clear nasal drainage. States he has had fullness to left ear 4 days ago. Came in to get a steroid shot if possible.. Historical: - Allergies: 14:01 No Known Allergies; kb3 - Home Meds: 14:01 None [Active]; kb3 - PMHx: 14:01 None; kb3 - PSHx: 14:01 None; kb3 - Immunization history:: Adult Immunizations up to date, Client reports having NOT received the Covid vaccine. Last tetanus immunization: up to date. - Social history:: Smoking status: Patient denies any tobacco usage or history of. ROS: 14:02 Constitutional: Negative for fever, chills, and weight loss. kb 14:02 ENT: Positive for rhinorrhea, left ear fullness. 14:02 All other systems are negative. Exam: 14:02 Constitutional: This is a well developed, well nourished patient who is awake, alert, kb and in no acute distress. Head/Face: Normocephalic, atraumatic. Cardiovascular: Regular rate and rhythm with a normal S1 and S2. No gallops, murmurs, or rubs. No pulse deficits. Respiratory: Respirations even and unlabored. No increased work of breathing. Talking in full sentences Skin: Warm, dry with normal turgor. Normal color. MS/ Extremity: Pulses equal, no cyanosis. Neurovascular intact. Full, normal range of motion. Neuro: Awake and alert, GCS 15, oriented to person, place, time, and situation. Moves all extremities. Normal gait. Psych: Awake, alert, with orientation to person, place and time. Behavior, mood, and affect are within normal limits. 14:02 ENT: External ear(s): are unremarkable, Ear canal(s): are normal, TM's: fluid levels, on the left. Vital Signs: 13:57 BP 136 / 98; Pulse 89; Resp 20; Temp 98.8; Pulse Ox 97% ; Weight 108.86 kg; Height 5 kb3 ft. 11 in. (180.34 cm); Pain 0/10; 13:57 Body Mass Index 33.47 (108.86 kg, 180.34 cm) kb3 MDM: 14:01 Patient medically screened. kb 14:06 Data reviewed: vital signs, nurses notes. Data interpreted: Pulse oximetry: on room air kb is 97 %. Interpretation: normal. Counseling: I had a detailed discussion with the patient and/or guardian regarding: the historical points, exam findings, and any diagnostic results supporting the discharge/admit diagnosis, the need for outpatient follow up, a family practitioner, to return to the emergency department if symptoms worsen or persist or if there are any questions or concerns that arise at home. Administered Medications: 14:13 Drug: Decadron (dexamethasone) 10 mg Route: IM; Site: right gluteus; kr3 14:26 Follow up: Response: No adverse reaction kr3 Disposition: 15:44 Co-signature as Attending Physician, Donnie Miller MD I agree with the assessment and kdr plan of care. Disposition Summary: 02/18/22 14:07 Discharge Ordered Location: Home kb Condition: Stable kb Diagnosis - Allergic rhinitis, unspecified kb Followup: kb - With: Emergency Department - When: As needed - Reason: Worsening of condition Followup: kb - With: Private Physician - When: 2 - 3 days - Reason: Recheck today's complaints, Continuance of care, Re-evaluation by your physician Discharge Instructions: - Discharge Summary Sheet kb - Allergic Rhinitis, Adult, [id number] kb Forms: - Medication Reconciliation Form kb - Thank You Letter kb - Antibiotic Education kb - Prescription Opioid Use kb - Work release form kr3 Prescriptions: - Prednisone 20 mg Oral Tablet - take 1 tablet by ORAL route once daily for 5 days; 5 tablet; Refills: 0, kb Product Selection Permitted Signatures: Anne Tolliver, Donnie Daley MD MD kdr Reid, Kelley RN RN kr3 Makayla Owen RN RN kb3
--- NOTE | 2022-02-18 14:08 | ER ---
Nurse's Notes [facility] Name: Gurdeep Null Age: 41 yrs Sex: Male : 1980 Arrival Date: 02/18/2022 Time: 13:49 Bed 12 Private MD: Dinesh Timmons V Diagnosis: Allergic rhinitis, unspecified Presentation: 02/18 13:57 Chief complaint: Patient states: Pt reports sinus drainage and left ear pressure x 3-4 kb3 weeks. Pt took Augmentin in late Sept for a sinus infection. Coronavirus screen: Vaccine status: Patient reports being unvaccinated. Client denies travel out of the [place] in the last 14 days. Ebola Screen: Patient negative for fever greater than or equal to 101.5 degrees Fahrenheit, and additional compatible Ebola Virus Disease symptoms Patient denies exposure to infectious person. Patient denies travel to an Ebola-affected area in the 21 days before illness onset. Initial Sepsis Screen: Does the patient meet any 2 criteria? No. Patient's initial sepsis screen is negative. Does the patient have a suspected source of infection? No. Patient's initial sepsis screen is negative. Risk Assessment: Do you want to hurt yourself or someone else? Patient reports no desire to harm self or others. Onset of symptoms was February 13, 2022. 13:57 Method Of Arrival: Ambulatory 3 13:57 Acuity: YAAKOV 4 kb3 Triage Assessment: 14:01 General: Appears in no apparent distress. Behavior is calm, cooperative. Pain: kb3 Complains of pain in left ear. EENT:. Historical: - Allergies: 14:01 No Known Allergies; kb3 - Home Meds: 14:01 None [Active]; kb3 - PMHx: 14:01 None; kb3 - PSHx: 14:01 None; kb3 - Immunization history:: Adult Immunizations up to date, Client reports having NOT received the Covid vaccine. Last tetanus immunization: up to date. - Social history:: Smoking status: Patient denies any tobacco usage or history of. Screenin:24 Abuse screen: Denies threats or abuse. Nutritional screening: No deficits noted. kr3 Tuberculosis screening: No symptoms or risk factors identified. Fall Risk None identified. Vital Signs: 13:57 BP 136 / 98; Pulse 89; Resp 20; Temp 98.8; Pulse Ox 97% ; Weight 108.86 kg; Height 5 kb3 ft. 11 in. (180.34 cm); Pain 0/10; 13:57 Body Mass Index 33.47 (108.86 kg, 180.34 cm) kb3 ED Course: 13:49 Patient arrived in ED. am2 13:49 Dinesh Timmons MD is Private Physician. am2 13:54 Anne Tolliver FNP-C is [facility]. kb 13:54 Donnie Miller MD is Attending Physician. kb 14:00 Bed in low position. Call light in reach. Side rails up X 1. kr3 14:01 Triage completed. kb3 14:01 Arm band placed on right wrist. kb3 14:06 Cheri Cruz, RN is Primary Nurse. kr3 14:25 No provider procedures requiring assistance completed. Patient did not have IV access kr3 during this emergency room visit. Administered Medications: 14:13 Drug: Decadron (dexamethasone) 10 mg Route: IM; Site: right gluteus; kr3 14:26 Follow up: Response: No adverse reaction kr3 Medication: 14:25 VIS not applicable for this client. kr3 Outcome: 14:07 Discharge ordered by . kb 14:24 Patient left the ED. kr3 14:25 Discharged to home ambulatory. kr3 14:25 Condition: stable 14:25 Discharge instructions given to patient, Instructed on discharge instructions, follow up and referral plans. medication usage, Demonstrated understanding of instructions, follow-up care, medications, Prescriptions given X 1. Signatures: Anne Tolliver FNP-C [facility] am2 Cheri Cruz, RN RN kr3 Makayla Owen, DINO RN kb3
[2022-02-18 14:41] VITALS: BP 136/98; TEMP 98.8; O2SAT 97
== END 2022-02-18 14:24 | disposition home or self-care (01) ==
LOC: ER 13:47
DX: J30.9 Allergic rhinitis, unspecified (principal)
CPT/HCPCS: 96372; 99283; J1100

== ENCOUNTER 2024-01-21 01:15 | Emergency (ER) | payer BC ==
--- OUTSIDE RECORDS SUMMARY | 2024-01-21 01:18 | XMS REPORT | Continuity of Care Document ---
Author Name Unknown Address [address] [place], [place] [address]ect Address [address] [facility] [address] [place] [address] Care Team Providers Care [employer] Technician Name Role Phone Unavailable Unavailable Unavailable
--- NOTE | 2024-01-21 01:58 | ER ---
Nurse's Notes [facility] Name: Gurdeep Null Age: 43 yrs Sex: Male : 1980 Arrival Date: 01/21/2024 Time: 01:15 Bed DX3 Private MD: Diagnosis: Seasonal allergies, nasal congestion Presentation: 01/20 01:40 Chief complaint: Patient states: I am feeling congested and have been for the past few jb4 days. I just wanted to get the shot that starts with a P that I normally get here. Coronavirus screen: At this time, the client does not indicate any symptoms associated with coronavirus-19. Ebola Screen: No symptoms or risks identified at this time. Initial Sepsis Screen: Does the patient meet any 2 criteria? No. Patient's initial sepsis screen is negative. Does the patient have a suspected source of infection? No. Patient's initial sepsis screen is negative. Risk Assessment: Do you want to hurt yourself or someone else? Patient reports no desire to harm self or others. Onset of symptoms was January 21, 2024. Transition of care: patient was not received from another setting of care. 01:40 Method Of Arrival: Ambulatory jb4 01:40 Acuity: [id number] jb4 Historical: - Allergies: 01:43 No Known Allergies; jb4 - PMHx: 01:43 Seasonal allergies; jb4 - PSHx: 01:43 None; jb4 - Immunization history:: Adult Immunizations up to date. - Infectious Disease History:: Denies. - Social history:: Smoking status: Patient reports use of chewing tobacco. Screenin:43 [facility] ED Fall Risk Assessment (Adult) History of falling in the last 3 months, jb4 including since admission No falls in past 3 months (0 pts) Confusion or Disorientation No (0 pts) Intoxicated or Sedated No (0 pts) Impaired Gait No (0 pts) Mobility Assist Device Used No (0 pt) Altered Elimination No (0 pt) Score/Fall Risk Level 0 - 2 = Low Risk Oriented to surroundings, Maintained a safe environment. Abuse screen: Denies threats or abuse. Nutritional screening: No deficits noted. Tuberculosis screening: No symptoms or risk factors identified. Assessment: 01:43 General: Appears in no apparent distress. comfortable, Behavior is calm, cooperative, jb4 appropriate for age. Pain: Denies pain. Neuro: Level of Consciousness is awake, alert, obeys commands, Oriented to person, place, time, situation. Cardiovascular: Patient's skin is warm and dry. Respiratory: Airway is patent Respiratory effort is even, unlabored, Respiratory pattern is regular, symmetrical. GI: No signs and/or symptoms were reported involving the gastrointestinal system. : No signs and/or symptoms were reported regarding the genitourinary system. EENT: No signs and/or symptoms were reported regarding the EENT system. Derm: Skin is intact, Skin is pink, warm \T\ dry. Musculoskeletal: Circulation, motion, and sensation intact. Range of motion: intact in all extremities. Vital Signs: 01:40 BP 121 / 81; Pulse 61; Resp 16; Temp 97.9(TE); Pulse Ox 100% on R/A; Weight 106.59 kg jb4 (R); Height 5 ft. 11 in. (R); 01:40 Body Mass Index 32.78 (106.59 kg, 180.34 cm) jb4 ED Course: 01:19 Patient arrived in ED. gm2 01:32 Darron Sandoval MD is Attending Physician. sp3 01:43 Triage completed. jb4 01:43 Arm band placed on right wrist. jb4 01:43 Patient has correct armband on for positive identification. Bed in low position. Call jb4 light in reach. Side rails up X 1. Provided Education on: plan. 02:02 No provider procedures requiring assistance completed. Patient did not have IV access jb4 during this emergency room visit. Administered Medications: 02:04 Drug: Dexamethasone IM 10 mg IM once Route: IM; Site: left deltoid; lg3 02:04 Follow up: Response: No adverse reaction lg3 Medication: 01:43 VIS not applicable for this client. jb4 Outcome: 01:58 Discharge ordered by . sp3 02:16 Discharged to home ambulatory, jb4 02:16 Condition: stable 02:16 Discharge instructions given to patient, Instructed on discharge instructions, follow up and referral plans. Demonstrated understanding of instructions, follow-up care, 02:16 Patient left the ED. jb4 Signatures: Abe Shepherd RN RN jb4 Lesa Louis RN RN lg3 Darron Sandoval MD MD 3 Ashley Silvestre gm2
--- NOTE | 2024-01-21 01:59 | EDPHYS ---
Physician Documentation [facility] Name: Gurdeep Null Age: 43 yrs Sex: Male : 1980 Arrival Date: 01/21/2024 Time: 01:15 Bed DX3 Private MD: ED Physician Darron Sandoval HPI: 01/20 01:55 This 43 yrs old Male presents to ER via Ambulatory with complaints of sp3 Congestion. 01:55 43-year-old male with history of seasonal allergies presents with nasal congestion for sp3 3 to 5 days. Patient states that it is his seasonal allergies and is here for a "steroid shot". He has not been taking any other medications [id number]. Denies fever, cough, chest pain, shortness of breath, abdominal pain, vomiting, diarrhea, syncope, near syncope, rash, known sick contacts, travel history, prolonged immobilization, or any other signs or symptoms on ROS at this time.. Historical: - Allergies: 01:43 No Known Allergies; jb4 - PMHx: 01:43 Seasonal allergies; jb4 - PSHx: 01:43 None; jb4 - Immunization history:: Adult Immunizations up to date. - Infectious Disease History:: Denies. - Social history:: Smoking status: Patient reports use of chewing tobacco. ROS: 01:55 Constitutional: Negative for fever, chills, and weight loss, Eyes: Negative for injury, sp3 pain, redness, and discharge, Neck: Negative for injury, pain, and swelling, Cardiovascular: Negative for chest pain, palpitations, and edema, Respiratory: Negative for shortness of breath, cough, wheezing, and pleuritic chest pain, Abdomen/GI: Negative for abdominal pain, nausea, vomiting, diarrhea, and constipation, Back: Negative for injury and pain, MS/Extremity: Negative for injury and deformity, Skin: Negative for injury, rash, and discoloration, Neuro: Negative for headache, weakness, numbness, tingling, and seizure, Psych: Negative for depression, anxiety, suicide ideation, homicidal ideation, and hallucinations, Allergy/Immunology: Negative for hives, rash, and allergies, Endocrine: Negative for neck swelling, polydipsia, polyuria, polyphagia, and marked weight changes, 01:55 All other systems are negative, Exam: 01:56 Constitutional: This is a well developed, well nourished patient who is awake, alert, sp3 and in no acute distress. Head/Face: Normocephalic, atraumatic. Eyes: Pupils equal round and reactive to light, extra-ocular motions intact. Lids and lashes normal. Conjunctiva and sclera are non-icteric and not injected. Cornea within normal limits. Periorbital areas with no swelling, redness, or edema. Neck: Trachea midline, no thyromegaly or masses palpated, and no cervical lymphadenopathy. Supple, full range of motion without nuchal rigidity, or vertebral point tenderness. No Meningismus. Chest/axilla: Normal chest wall appearance and motion. Nontender with no deformity. No lesions are appreciated. Cardiovascular: Regular rate and rhythm with a normal S1 and S2. No gallops, murmurs, or rubs. Normal PMI, no JVD. No pulse deficits. Respiratory: Lungs have equal breath sounds bilaterally, clear to auscultation and percussion. No rales, rhonchi or wheezes noted. No increased work of breathing, no retractions or nasal flaring. Abdomen/GI: Soft, non-tender, with normal bowel sounds. No distension or tympany. No guarding or rebound. No evidence of tenderness throughout. Back: No spinal tenderness. No costovertebral tenderness. Full range of motion. Skin: Warm, dry with normal turgor. Normal color with no rashes, no lesions, and no evidence of cellulitis. MS/ Extremity: Pulses equal, no cyanosis. Neurovascular intact. Full, normal range of motion. Neuro: Awake and alert, GCS 15, oriented to person, place, time, and situation. Cranial nerves II-XII grossly intact. Motor strength 5/5 in all extremities. Sensory grossly intact. Cerebellar exam normal. Normal gait. Psych: Awake, alert, with orientation to person, place and time. Behavior, mood, and affect are within normal limits. 01:56 ENT: Nasal congestion present. No rhinorrhea or bleeding or other URI symptoms. Vital Signs: 01:40 BP 121 / 81; Pulse 61; Resp 16; Temp 97.9(TE); Pulse Ox 100% on R/A; Weight 106.59 kg jb4 (R); Height 5 ft. 11 in. (R); 01:40 Body Mass Index 32.78 (106.59 kg, 180.34 cm) jb4 MDM: 01:32 Patient medically screened. sp3 01:56 Data reviewed: vital signs, nurses notes. ED course: 43-year-old male with seasonal sp3 allergies. Clinically have ruled out infection, pneumonia, bronchitis, ACS, or any other critical process including sepsis. Will give dexamethasone 10 mg IM and told patient to follow-up with PCP and obtain Claritin-D or Zyrtec-D or other equivalent OTC.. Administered Medications: 02:04 Drug: Dexamethasone IM 10 mg IM once Route: IM; Site: left deltoid; lg3 02:04 Follow up: Response: No adverse reaction lg3 Disposition Summary: 01/21/24 01:58 Discharge Ordered Notes: Location: Home sp3 Condition: Stable sp3 Diagnosis - Seasonal allergies, nasal congestion sp3 Followup: sp3 - With: Private Physician - When: Upon discharge from the Emergency Department - Reason: Continuance of care Discharge Instructions: - Discharge Summary Sheet sp3 - Allergies, Adult sp3 Forms: - Medication Reconciliation Form sp3 - Antibiotic Education sp3 - Prescription Opioid Use sp3 - Patient Portal Instructions sp3 - Leadership Thank You Letter sp3 Signatures: Abe Shepherd RN RN jb4 Lesa Louis RN RN lg3 Darron Sandoval MD MD sp3
[2024-01-21] MEDS ORDERED: dexAMETHasone 10 MG/ML VIAL ONE (02:01)
[2024-01-21 16:03] VITALS: BP 121/81; TEMP 97.9; O2SAT 100
== END 2024-01-21 02:16 | disposition home or self-care (01) ==
LOC: ER 01:15
DX: R09.81 Nasal congestion (principal); J30.2 Other seasonal allergic rhinitis; F17.220 Nicotine dependence, chewing tobacco, uncomplicated
CPT/HCPCS: 96372; 99284; J1100